=== PATIENT | male | born 1955 | race African-American/Black ===

== ENCOUNTER 2024-09-21 11:21 | Outpatient (AMB) | payer OTHER, SELFPAY ==
--- NOTE | 2024-09-21 11:21 | A.OFFVIS_ITS ---
Vital Signs 09/21/24 11:25 Height 6 ft 1 in Weight 229 lb 4.492 oz BMI 30.2 BP 197/88 H Blood Pressure Location Lt brachial Position Sitting Pulse 87 Intake Visit Reasons: Positive Cologuard Intake Note: Renard presents in the office as a new patient for positive cologuard. CC: Never had a colonoscopy - states he occasionally has constipation. 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 Allergies azithromycin Allergy (Mild, Verified 09/21/24 11:26) Unknown guaifenesin [From Quibron] Allergy (Mild, Verified 09/21/24 11:26) Unknown theophylline [From Quibron] Allergy (Mild, Verified 09/21/24 11:26) Unknown HPI HPI Positive Cologuard: Details: HPI 69 yr old m here for assessment He had an indeterminate cologuard and advised on colonoscopy by the PCP no change in bowel habits no blood in stool or melena he has a good appetite no nausea or vomiting ROS: Constitutional : No Weight loss, No Fever, No Chills ENT/Mouth : No sore throat, No Rhinorrhea Eyes: No Swelling, No Redness Cardiovascular : No Chest Pain, No SOB, No Edema Respiratory : No Cough, No Sputum, No Wheezing Gastrointestinal : see HPI Genitourinary : NO Dysuria, No Urinary Frequency, No Hematuria, No Urgency Musculoskeletal : No joint pain, No Myalgias, No Joint Swelling Skin : No Skin Lesions, No rash Neuro : No Weakness, No Numbness, No Dizziness, No Headache Psych : No Anxiety/Panic, No Depression Heme/Lymph: No Bruising, No Lymphadenopathy Endocrine : No Polyuria, No Polydipsia All other systems reviewed and are negative. Medical History HTN gout Surgical History tonsillectomy appendectomy Family History HTN parents Social History retired non smoker no alcohol EXAM: GENERAL: The patient is well developed and nontoxic. VITAL SIGNS:see workflow HEENT: Nonicteric sclerae, PERRLA, EOMI. Oropharynx clear. Moist mucous membranes. Conjunctivae appear well perfused. No thyroid mass. CHEST: Chest wall is nontender. HEART: Regular rate and rhythm without murmurs. LUNGS: Clear to auscultation bilaterally. ABDOMEN: Soft, positive bowel sounds, nontender, no organomegaly.no flank tenderness SKIN: No rash, no excessive bruising, petechiae, or purpura. NEUROLOGIC: Cranial nerves II-XII intact without motor/sensory deficit. Psych: normal affect A/P: 1/ Pos cologuard, afro emirati background Plan: 1/ urgent colo for further assessment 2/ miralax prep with bariatric bed [facility] Surgical History (Updated 09/21/24 @ 11:26 by KEILA Dent) History of esophagogastroduodenoscopy (EGD) Physical Exam Vital Signs: Last Vital Signs Pulse 87 09/21/24 11:25 BP 197/88 H 09/21/24 11:25 BMI result Body Mass Index 30.2 Assessment & Plan Assessment & Plan (1) Positive colorectal cancer screening using Cologuard test: Code(s): R19.5 - Other fecal abnormalities Category: Medical Plan: see above Medications: New bisacodyl (Dulcolax (bisacodyl)) take at 6 pm day before colonoscopy 20 mg (4 x 5 mg) PO ONCE 4 tabs 0RF 1 day polyethylene glycol 3350 (Miralax) mix the full container with 64 ounces of gatorade for colonoscopy prep the evening before the test and drink 238 grams PO ONCE 238 grams 0RF Coding Level of Care Code New Pt Level 4 (50350) Diagnoses Positive colorectal cancer screening using Cologuard test R19.5
[2024-09-21 11:25] VITALS: BP 197/88; PULSE 87; BMI 30.2
== END 2024-09-21 12:09 | disposition home or self-care (01) ==
LOC: HO.HGI 11:21
PROVIDERS: PCP Internal Medicine; Visit Provider Internal Medicine Gastroenterology
DX: R19.5 Other fecal abnormalities (principal)
CPT/HCPCS: 99204

== ENCOUNTER → 2024-09-21 11:21 | Outpatient (BNVA) | payer OTHER, SELFPAY | PROVIDERS: PCP Internal Medicine; Visit Provider Internal Medicine Gastroenterology ==

== ENCOUNTER 2024-09-24 10:28 | Day surgery (SDC) | payer MEDICARE, OTHER, SELFPAY ==
[2024-09-24 10:52] VITALS: BMI 29.9
[2024-09-24 11:12] VITALS: BP 197/104; PULSE 88; RESP 16; TEMP 36.9; O2SAT 99
[2024-09-24 12:00] VITALS: BP 171/91
--- NOTE | 2024-09-24 12:05 | MHC.SHP ---
Pre-Procedural Eval Section A - 24 Hr Update-Section A only Date of Service: 09/24/24 The patient is an INPATIENT: No The patient has been examined within 24 hours of the surgical procedure. The History & Physical has been completed within 30 days and I have reviewed it.: Yes Section B - Complete if H&P > 30 days Chief Complaint: Other fecal abnormalities Allergies: Allergies Allergy/AdvReac Type Severity Reaction Status Date / Time azithromycin Allergy Mild Unknown Verified 09/24/24 10:51 theophylline [From Quibron] Allergy Mild Unknown Verified 09/24/24 10:51 Plan Diagnosis/Plan: Unchanged I have reviewed the history and physical and performed a pertinent physical examination on my patient. No changes have occurred unless specified. Time Spent With Patient Time: Total time managing care of this patient today ____ minutes.
--- NOTE | 2024-09-24 12:30 | P.CONAN_ITS ---
HPI - Anesthesia Eval Consult details Narrative: colon screen [facility] Active Problems Active Problems: All Active Problems Positive colorectal cancer screening using Cologuard test (Acute) Family History Family history of problems with anesthesia: No Surgical History Surgical History History of esophagogastroduodenoscopy (EGD) History of Problems with Anesthesia: No Social History Social History Patient Tobacco Use Status: Never used Tobacco Use of substances other than those prescribed or required for medical reasons: No Are you DNR?: No Advance Directives: No Advance Directives Information Provided: Yes Meds Allergies Allergy/AdvReac Type Severity Reaction Status Date / Time azithromycin Allergy Mild Unknown Verified 09/24/24 10:51 theophylline [From Quibron] Allergy Mild Unknown Verified 09/24/24 10:51 Home Medications ?Medication ?Instructions ?Recorded ?Confirmed ?Last Taken ?Type amlodipine 10 mg-olmesartan 40 mg 1 tab PO DAILY 09/21/24 09/24/24 09/24/24 07:05 History tablet colchicine 0.6 mg tablet 0.6 mg PO DAILY 09/21/24 09/24/24 09/24/24 07:05 History Exam Height,Weight and Vital Signs: Height 6 ft 1 in Weight 102.965 kg Last Vital Signs Temp 98.4 F 09/24/24 11:12 Pulse 88 09/24/24 11:12 Resp 16 09/24/24 11:12 BP 171/91 H 09/24/24 12:00 Pulse Ox 99 09/24/24 11:12 O2 Del Method Room Air 09/24/24 11:12 Airway Mallampati Class: II TM Dist: >3cm Neck ROM: Full Heart: rrr Assessment and Plan Assessment Anesthesia Assessment: Anesthesia Plan Discussed and Smoking Cess. Discussed Final Anesthetic Review Family History of Problems with Anesthesia: No History of Problems with Anesthesia: No NPO: Yes ASA Class: II (hypertension on amlodepine) Final Preanesthetic Review: No Changes in Pt Med Stat, Meds/Allgs Chart Reviewed, Consent Obtained/Reviewed and Anes Risks/Benef Reviewed Patient Risk: Low Procedure Risk: Low Anesthetic Plan Anesthetic Plan: MAC: Disposition: Standard PACU
--- NOTE | 2024-09-24 13:43 | HO.OPN-COLON ---
Colonoscopy Operative Note Operative Note Date of Service: 09/24/24 Narrative: Operative Information Procedure Description: Colonoscopy Indication: pos cologuard Anesthesia: MAC COLONOSCOPY Instrument: Olympus variable stiffness adult scope 190L Colonoscopy Monitoring: Vital signs and clinical assessment, continuous EKG monitoring, Pulse oximetry, Carbon Dioxide monitoring and blood pressure monitoring were done throughout the procedure. Colon withdrawal time was 12 minutes. Procedure: The patient was placed in the left lateral decubitis position and pre-procedure medications were administered. After a digital rectal examination of the ano-rectum, the video colonoscope was inserted into the rectum and advanced through the colon to the cecum/TI. The colonoscope was slowly withdrawn in a retrograde panoramic fashion and the colon mucosa was carefully examined including a retroflexed view of the rectum. Findings and interventions are described below. Procedure Difficulty: easy Findings: Terminal Ileum-normal Cecum:normal Rigth sided retroflexion- normal Ascending Colon: few diverticula seen Transverse Colon -normal Descending Colon: x 2 sessile polyps 5-6 mm removed with cold forceps, 6-8 mm sessile polyp removed with cold snare Sigmoid Colon: x 1 sessile polyp 5-7 mm sessile removed with cold forceps, and x 1 semi pedunculated polyp 8-9 mm removed with cold snare Rectum: Retroflexion with medium sized internal hemorrhoids seen, grade I, 7-9 mm sessile polyp removed with cold snare Anorectum - normal Intervention: cold forceps, cold snare Colon preparation: Volant Bowel Preparation Scale Right colon; 2 Transverse colon: 2 Left colon; 2 (0 = Unprepared colon segment with mucosa not seen due to solid stool that cannot be cleared. 1 = Portion of mucosa of the colon segment seen, but other areas of the colon segment not well seen due to staining, residual stool and/or opaque liquid. 2 = Minor amount of residual staining, small fragments of stool and/or opaque liquid, but mucosa of colon segment seen well. 3 = Entire mucosa of colon segment seen well with no residual staining, small fragments of stool or opaque liquid) Impression and Post Procedure Diagnosis: diverticulosis colon polyps internal hemorrhoids Plan: High fiber diet leaflet Avoid straining at stool, epsom salts and sitz bath, anusol supps or cream Repeat Colonoscopy in 3 years due to polyps or earlier if clinically indicated Above findings were reviewed with the patient and relevant handouts were provided if indicated.
[2024-09-24 13:50] VITALS: BP 121/80; PULSE 82; RESP 16; TEMP 36.3; O2SAT 97
[2024-09-24 14:05] VITALS: BP 138/78; PULSE 66; RESP 16; O2SAT 98
[2024-09-24 14:18] VITALS: BP 145/81; PULSE 61; RESP 16; TEMP 36.2; O2SAT 98
== END 2024-09-24 15:10 | disposition home or self-care (01) ==
PROVIDERS: PCP Internal Medicine; Visit Provider Internal Medicine Gastroenterology
PROC: 0DJD8ZZ Inspection of Lower Intestinal Tract, Via Natural or Artificial Opening Endoscopic (ICD-10-PCS; CPT 45378; principal; 2024-09-24 13:00)
DX: D12.4 Benign neoplasm of descending colon (principal); D12.5 Benign neoplasm of sigmoid colon; K62.1 Rectal polyp; K57.30 Diverticulosis of large intestine without perforation or abscess without bleeding; K64.8 Other hemorrhoids; R19.5 Other fecal abnormalities
CPT/HCPCS: 45385; 45380; 88305; J2003; J2704

== ENCOUNTER → 2024-09-24 10:28 | Outpatient (BNV) | payer MEDICARE, OTHER, SELFPAY | PROVIDERS: PCP Internal Medicine; Visit Provider Internal Medicine Gastroenterology | DX: Z12.11 Encounter for screening for malignant neoplasm of colon (principal); R19.5 Other fecal abnormalities; D12.4 Benign neoplasm of descending colon; K62.1 Rectal polyp; K57.90 Diverticulosis of intestine, part unspecified, without perforation or abscess without bleeding; K64.0 First degree hemorrhoids | CPT/HCPCS: 45380; 45385 ==